=== PATIENT | female | born 1985 | race Two or more races ===

== ENCOUNTER 2022-01-12 04:10 | Day surgery (SDC) | payer OTHER ==
[2022-01-10 13:43] VITALS: BMI 31.0
[2022-01-12] MEDS ORDERED: ONDANSETRON 4 MG/2 ML VIAL ONE (11:35)
[2022-01-12] MEDS ORDERED: PROPOFOL 20 ML ONE (11:35)
[2022-01-12] MEDS ORDERED: DEXAMETHASONE SOD PHOSPHATE 4 MG/1 ML VIAL ONE (11:35)
[2022-01-12] MEDS ORDERED: LIDOCAINE HCL/PF 2% SDV 5ML VIAL ONE (11:35)
[2022-01-12] MEDS ORDERED: MIDAZOLAM HCL 2 MG/2 ML SINGLE DOSE VIAL ONE (11:36)
[2022-01-12] MEDS ORDERED: ROCURONIUM BROMIDE 50 MG/5 ML SYRINGE ONE (11:36)
[2022-01-12] MEDS ORDERED: METHYLENE BLUE 50 MG/10 ML AMPUL ONE (12:03)
[2022-01-12] MEDS ORDERED: ceFAZolin SODIUM 1 GM VIAL ONE (12:34)
[2022-01-12] MEDS ORDERED: ceFAZolin SODIUM 1 GM VIAL IVPB ONE (12:38)
[2022-01-12] MEDS ORDERED: OXYTOCIN 10 UNITS/ML VIAL ONE (12:45)
[2022-01-12] MEDS ORDERED: GLYCOPYRROLATE 0.2 MG/1 ML VIAL ONE (13:14)
[2022-01-12] MEDS ORDERED: NEOSTIGMINE METHYLSULFATE 0.5 MG/1 ML - 10 ML MDV ONE (13:14)
[2022-01-12] MEDS ORDERED: KETOROLAC TROMETHAMINE 30 MG/1 ML VIAL ONE (13:15)
[2022-01-12] MEDS ORDERED: ONDANSETRON 4 MG/2 ML VIAL IVPUSH PRN (13:53)
[2022-01-12] MEDS ORDERED: oxyCODONE HCL 5 MG TABLET PO PRN (13:53)
[2022-01-12] MEDS ORDERED: LACTATED RINGERS SOLUTION 1,000 ML IV SCH (14:00)
[2022-01-12] MEDS ORDERED: IBUPROFEN 800 MG/8 ML IJ IVPB PRN (14:06)
[2022-01-12] MEDS ORDERED: ACETAMINOPHEN 1000 MG/100 ML BAG IVPB PRN (14:07)
[2022-01-12 15:45] VITALS: RESP 18
[2022-01-12 18:27] VITALS: TEMP 97.8
[2022-01-12 18:28] VITALS: BP 112/68; PULSE 78
== END 2022-01-12 17:20 | disposition home or self-care (01) ==
LOC: JASU-SURG 04:10
PROVIDERS: ATTEND Specialist
PROC: 10A07ZZ Abortion of Products of Conception, Via Natural or Artificial Opening (ICD-10-PCS; principal; 2022-01-12 11:00)
PROC: 0UT54ZZ Resection of Right Fallopian Tube, Percutaneous Endoscopic Approach (ICD-10-PCS; 2022-01-12 11:00)
DX: Z33.2 Encounter for elective termination of pregnancy (principal); Z30.2 Encounter for sterilization
CPT/HCPCS: 88305-TC; 94760; Q9968